=== PATIENT | male | born 1955 | race Hispanic/Latino ===

== ENCOUNTER → 2019-03-16 | Outpatient (CLI) | payer OTHER ==
[~2019-03-16] MED LIST: AMLO2.5T4 PO; ASPI-555 PO; ATOR20TA65 PO; GLIP5TAB11 PO; LISI-613 PO; NPH,100V SQ
== END | disposition home or self-care (01) ==
LOC: OIH 16:15
PROVIDERS: ATTEND Family Medicine
DX: M16.11 Unilateral primary osteoarthritis, right hip (principal); I70.90 Unspecified atherosclerosis
CPT/HCPCS: 73502

== ENCOUNTER 2020-09-15 09:31 | Day surgery (SDC) | payer OTHER ==
[2020-09-12 15:39] LABS: BASOPHILS % (AUTO) 0.7 % (0.0-5.0); EOSINOPHILS % (AUTO) 6.3 % (0.0-8.0); HEMATOCRIT 27.1 % (42-54); LYMPHOCYTES % (AUTO) 14.6 % (21.0-51.0); MEAN CORPUSCULAR HEMOGLOBIN 28.3 pg (27.0-33.0); MEAN CORPUSCULAR HGB CONC 32.8 g/dL (32.0-36.0); MEAN CORPUSCULAR VOLUME 86.3 fL (79-99); MONOCYTES % (AUTO) 6.3 % (3.0-13.0); NEUTROPHILS % (AUTO) 71.7 % (40.0-77.0); PLATELET COUNT (AUTO) 380 K/uL (130-400); RED BLOOD CELL COUNT(AUTO) 3.14 MIL/uL (4.50-6.20); RED CELL DISTRIBUTION WIDTH 13.9 % (11.0-15.5); WHITE BLOOD COUNT (AUTO) 9.7 K/uL (4.8-10.8)
[2020-09-12 15:43] LABS: APPEARANCE,URINE Clear (CLEAR); BILIRUBIN,URINE Negative (NEGATIVE); COLOR,URINE Yellow (YELLOW); GLUCOSE, URINE (UA) 500 mg/dL (NEGATIVE); KETONES,URINE Trace mg/dL (NEGATIVE); LEUKOCYTE ESTERASE ,URINE Trace (NEGATIVE); NITRATE,URINE Negative (NEGATIVE); OCCULT BLOOD,URINE Nonhemolyzed Trace (NEGATIVE); PH,URINE 5.5 (5.0-8.0); PROTEIN,URINE >=1000 mg/dL (NEGATIVE)
[2020-09-12 15:48] LABS: CREATININE 1.3 mg/dL (0.5-1.5)
[2020-09-12 15:50] LABS: INR 0.99 (0.85-1.15); PARTIAL THROMBOPLASTIN TIME 34.6 SEC (26.3-35.5); PROTHROMBIN TIME 10.7 SEC (9.6-11.6)
[2020-09-12 15:58] LABS: BACTERIA,URINE Few /HPF (None Seen); WBC,URINE 26-50 /HPF (0-1)
[2020-09-12 15:59] LABS: SQUAMOUS EPITHELIAL CELL,UR Few /HPF (0-2); TRANSITIONAL EPI CELLS,URINE Rare /HPF (None Seen)
[2020-09-14 15:38] VITALS: BP 141/72
[2020-09-15] VITALS (8 sets, daily range): BP systolic 99–156; BP diastolic 60–73
[~2020-09-15] VITALS: Ht 170.2 cm; Wt 75.0 kg
[~2020-09-15 09:31] MED LIST changes: +ACET1TAB25 PO; +ACET325C6 PO; +AMLO-257 PO; +ASPI-1197 PO; -ASPI-555 PO; +ASPI-556 PO; -ATOR20TA65 PO; +CALCIUM-VITAMIN D PO; +FOLIC ACID PO; -GLIP5TAB11 PO; +HYDR-4453 PO; +INSLAN SQ; +METF-446 PO; +MVI PO; -NPH,100V SQ; +ROSU5TAB12 PO; +SODIUM CHLORIDE 0.9% 500ML 500 ML IV SCH; +VANCOMYCIN IV
[2020-09-15] MEDS ORDERED: SODIUM CHLORIDE 0.9% 1000ML 1,000 ML IV ONE (11:49)
[2020-09-15] MEDS ORDERED: HEPARIN SODIUM 1000UNIT/ML 10ML VIAL ONE (14:16)
[2020-09-15] MEDS ORDERED: IODIXANOL 320 MG/ML 100 ML VIAL ONE (14:17)
[2020-09-15] MEDS ORDERED: NITROGLYCERIN 2 MG/VIAL VIAL IV ONE (14:17)
[2020-09-15] MEDS ORDERED: LIDOCAINE HCL 2% 20ML ONE (14:17)
[2020-09-15] MEDS ORDERED: NICARDIPINE HCL 25 MG/10 ML ML IV ONE (14:19)
[2020-09-15] MEDS ORDERED: FENTANYL CITRATE PF 50 MCG/1 ML 2ML VIAL ONE (14:22)
[2020-09-15] MEDS ORDERED: MIDAZOLAM HCL 1 MG/ML 2ML VIAL ONE (14:22)
[2020-09-15] MEDS ORDERED: SODIUM CHLORIDE 0.9% 1000ML 1,000 ML IV SCH (16:30)
== END 2020-09-15 19:52 ==
LOC: DAH 09:31
PROVIDERS: ATTEND Internal Medicine Cardiovascular Disease
DX: I70.238 Atherosclerosis of native arteries of right leg with ulceration of other part of lower leg (principal); E11.51 Type 2 diabetes mellitus with diabetic peripheral angiopathy without gangrene; L97.818 Non-pressure chronic ulcer of other part of right lower leg with other specified severity; E78.5 Hyperlipidemia, unspecified; I10 Essential (primary) hypertension; M06.9 Rheumatoid arthritis, unspecified; I48.91 Unspecified atrial fibrillation; I25.2 Old myocardial infarction; Z98.890 Other specified postprocedural states; Z79.4 Long term (current) use of insulin; Z79.899 Other long term (current) drug therapy; Z79.01 Long term (current) use of anticoagulants
CPT/HCPCS: 36246; 36415; 71045; 75625; 75716; 80048; 81001; 82948; 85025; 85610; 85730; 87088; 93005; A4215; A4216; A4221; A4222; A4223 ×3; A4606; A4663; C1760; C1769; C1887; C1894 ×3; J1644; J2250; J3010; J3490 ×3; J7030; Q9967; 11042; 75774; 87070; 87077; 87186; 96360; 96361; 99156; 99157; A6021; G0378